=== PATIENT | female | born 1970 | race Two or more races ===

== ENCOUNTER 2018-06-16 21:36 | Emergency (ER) | payer MEDICAID ==
[~2018-06-16] VITALS: Ht 124.5 cm; Wt 58.5 kg
[2018-06-16 22:31] VITALS: BP 187/79
[2018-06-16] MEDS ORDERED: cefTRIAXone SOD 1,000 MG VL IM ONE (23:15)
[2018-06-16] MEDS ORDERED: ACETAMINOPHEN/CODEINE#3 (300/30mg) TAB PO ONE (23:15)
== END 2018-06-16 23:46 | disposition home or self-care (01) ==
LOC: ER 21:36
DX: K02.9 Dental caries, unspecified (principal)
CPT/HCPCS: 96372; 99283; J0696

== ENCOUNTER 2022-01-16 02:32 | Emergency (ER) | payer MEDICAID ==
[~2022-01-16] VITALS: Ht 154.9 cm; Wt 53.1 kg
[2022-01-16 03:34] LABS: Basophils # (auto) 0.1 10 ^3/uL (0-0.2); Basophils % (auto) 0.5 % (0.0-2.0); Eosinophils # (auto) 0 10 ^3/uL (0-0.8); Eosinophils % (auto) 0.3 % (0.0-7.0); Hematocrit 38.5 % (36.0-46.0); Hemoglobin 13.4 g/dL (12.2-16.2); Lymphocytes % (auto) 10.5 % (10.0-50.0); Mean Corpuscular Hemoglobin 30.9 pg (28.0-32.0); Mean Corpuscular Hgb Conc. 34.9 g/dL (32.0-36.0); Mean Corpuscular Volume 88.6 fL (80.0-100.0); Monocytes # (auto) 0.6 10 ^3/uL (0-1.3); Monocytes % (auto) 6.3 % (0.0-12.0); Neutrophils # (auto) 7.8 10 ^3/uL (1.6-8.6); Neutrophils % (auto) 82.4 % (37.0-80.0); Nucleated Red Blood Cells % 0.1 %; Red Blood Cells 4.34 10^6/uL (4.0-5.20); Red Cell Distribution Width 13.7 % (11.8-14.3); White Blood Cell 9.4 10^3/uL (4.4-10.8)
[2022-01-16 03:52] LABS: Albumin 3.4 g/dL (3.4-5.0); BUN/Creatinine Ratio 13.5; Potassium 3.4 mmol/L (3.5-5.1)
[2022-01-16 03:55] LABS: Bilirubin, Total 0.5 mg/dL (0.2-1.0)
[2022-01-16 05:06] VITALS: BP 105/53
[2022-01-16] MEDS ORDERED: DIPH2.5T73 PO (05:29)
== END 2022-01-16 06:09 | disposition home or self-care (01) ==
LOC: ER 02:32
DX: B34.9 Viral infection, unspecified (principal); R10.13 Epigastric pain; R19.7 Diarrhea, unspecified
CPT/HCPCS: 36415; 80053; 85025; 93005

== ENCOUNTER 2022-04-24 23:39 | Emergency (ER) | payer MEDICAID ==
[~2022-04-24] VITALS: Ht 154.9 cm; Wt 53.6 kg
[~2022-04-24 23:39] MED LIST: DIPH2.5T73 PO
[2022-04-25 01:35] VITALS: BP 132/65
== END 2022-04-25 06:01 | disposition left against medical advice (07) ==
LOC: ER 23:39
DX: R53.1 Weakness (principal); R25.1 Tremor, unspecified; E11.9 Type 2 diabetes mellitus without complications; Z53.21 Procedure and treatment not carried out due to patient leaving prior to being seen by health care provider
CPT/HCPCS: 82962